=== PATIENT | female | born 1950 | race American Indian/Alaskan Native ===

== ENCOUNTER 2016-10-28 12:44 | Observation (INO) | payer BC, MEDICARE ==
[2016-10-28 12:52] VITALS: BMI 38.0
[2016-10-28] MEDS ORDERED: Labetalol 5 mg/ml Inj 20ML IV STA (12:59)
--- NOTE | 2016-10-28 13:02 | ED PDOC ---
Arrival/HPI - General Chief Complaint: Chest Pain Time Seen by Provider: 10/28/16 12:49 Historian: Patient - History of Present Illness Narrative History of Present Illness (Text): 10/28/16 12:59 66 year old female whose past medical history includes gastritis, diabetes, and hypertension presents to the emergency department with left sided chest pain for the past few days. She describes it as an achy dull sensation. Denies shortness of breath or other complaints. Time/Duration: < week Symptom Onset: Sudden Symptom Course: Unchanged Modifying Factors (Text): None Past Medical History - Provider Review Nursing Documentation Reviewed: Yes - Cardiac Hx Cardiac Disorders: Yes Hx Hypertension: Yes - Pulmonary Hx Respiratory Disorders: No - Neurological Hx Neurological Disorder: No - HEENT Hx HEENT Disorder: No - Renal Hx Renal Disorder: No - Endocrine/Metabolic Hx Endocrine Disorders: Yes Hx Diabetes Mellitus Type 2: Yes - Hematological/Oncological Hx Blood Disorders: No - Integumentary Hx Dermatological Disorder: No - Musculoskeletal/Rheumatological Hx Musculoskeletal Disorders: Yes Hx Arthritis: Yes Hx Herniated Disk: Yes - Gastrointestinal Hx Gastrointestinal Disorders: Yes Hx Gastritis: Yes - Genitourinary/Gynecological Hx Genitourinary Disorders: No - Psychiatric Hx Psychophysiologic Disorder: No Hx Substance Use: No Family/Social History - Physician Review Nursing Documentation Reviewed: Yes Family/Social History: Unknown Family HX Smoking Status: Never Smoked Hx Alcohol Use: Yes Hx Substance Use: No Allergies/Home Meds Allergies/Adverse Reactions: Allergies No Known Allergies Allergy (Verified 10/28/16 12:52) Home Medications: Home Meds Medication Instructions Recorded Confirmed Losartan/Hydrochlorothiazide 1 tab PO DAILY 10/28/16 10/28/16 [Losartan-Hctz 100-12.5 mg Tab] Simvastatin [Simvastatin] 20 mg PO DAILY 10/28/16 10/28/16 amLODIPine [Norvasc] 10 mg PO DAILY 10/28/16 10/28/16 metFORMIN [glucOPHAGE] 500 mg PO BID 10/28/16 10/28/16 Review of Systems - Physician Review All systems were reviewed & negative as marked: Yes - Review of Systems Respiratory: absent: SOB Cardiovascular: Chest Pain Physical Exam Vital Signs Reviewed: Yes Vital Signs Temp Pulse Resp BP Pulse Ox 10/28/16 18:15 98.1 F 98 H 18 150/70 98 10/28/16 17:27 61 16 142/53 L 97 06/03/17 17:00 68 18 143/68 98 10/28/16 14:58 77 16 143/78 97 10/28/16 13:52 65 16 164/63 H 99 10/28/16 13:10 70 16 194/72 H 99 10/28/16 12:49 98.0 F 80 16 208/126 H 99 Temperature: Afebrile Blood Pressure: Hypertensive Pulse: Regular Respiratory Rate: Normal Appearance: Positive for: Well-Appearing, Non-Toxic, Comfortable Pain Distress: None Mental Status: Positive for: Alert and Oriented X 3 - Systems Exam Head: Present: Atraumatic, Normocephalic Pupils: Present: PERRL Extroacular Muscles: Present: EOMI Conjunctiva: Present: Normal Mouth: Present: Moist Mucous Membranes Neck: Present: Normal Range of Motion Respiratory/Chest: Present: Clear to Auscultation, Good Air Exchange. No: Respiratory Distress, Accessory Muscle Use Cardiovascular: Present: Regular Rate and Rhythm, Normal S1, S2. No: Murmurs Abdomen: Present: Normal Bowel Sounds. No: Tenderness, Distention, Peritoneal Signs Back: Present: Normal Inspection Upper Extremity: Present: Normal Inspection. No: Cyanosis, Edema Lower Extremity: Present: Normal Inspection. No: Edema Neurological: Present: GCS=15, CN II-XII Intact, Speech Normal Skin: Present: Warm, Dry, Normal Color. No: Rashes Psychiatric: Present: Alert, Oriented x 3, Normal Insight, Normal Concentration Medical Decision Making ED Course and Treatment: Impression: 66 year old female whose past medical history includes gastritis, diabetes, and hypertension presents to the emergency department with left sided chest pain for the past few days. Differential Diagnosis included but are not limited to: Plan: -- EKG, CXR -- Aspirin, Labetolol -- Reassess and disposition Progress Notes: 10/28/16 16:56 On reevaluation, patient states pain has resolved. 10/28/16 17:02 Dr. Toribio accepts for admission - Lab Interpretations Lab Results: 10/28/16 13:09 10/28/16 13:09 Lab Results 10/28/16 13:52: Urine Color Yellow, Urine Appearance Clear, Urine pH 6.0, Ur Specific Boomer 1.010, Urine Protein Negative, Urine Glucose (UA) Negative, Urine Ketones Negative, Urine Blood Negative, Urine Nitrate Negative, Urine Bilirubin Negative, Urine Urobilinogen 0.2, Ur Leukocyte Esterase Negative 10/28/16 13:09: Sodium 137, Potassium 3.7, Chloride 101, Carbon Dioxide 28, Anion Gap 12, BUN 11, Creatinine 0.7, Est GFR ( Amer) > 60, Est GFR (Non- Af Amer) > 60, Random Glucose 141 H, Calcium 9.4, Magnesium 1.5 L, Total Bilirubin 0.7, AST 20, ALT 27, Alkaline Phosphatase 98, Lactate Dehydrogenase 409, Total Creatine Kinase 81, Troponin I < 0.01, Total Protein 7.7, Albumin 4.0 , Globulin 3.7, Albumin/Globulin Ratio 1.1 10/28/16 13:09: PT 11.6, INR 1.07, APTT 28.0 10/28/16 13:09: WBC 8.5, RBC 4.46, Hgb 13.1, Hct 37.7, MCV 84.5, MCH 29.4, MCHC 34.7, RDW 12.7, Plt Count 284, MPV 10.7, Gran % 52.0, Lymph % (Auto) 40.1 H, Gonzales % (Auto) 7.3 H, Eos % (Auto) 0.4 L, Baso % (Auto) 0.2, Gran # 4.42, Lymph # 3.4, Gonzales # 0.6, Eos # 0.0, Baso # 0.02 - RAD Interpretation Radiology Orders: 10/28/16 12:57 CHEST PORTABLE [RAD] Stat 10/28/16 13:48 ANGIOGRAPHY DISECTION PROTOCOL [CT] Stat - EKG Interpretation EKG Interpretation (Text): EKG shows NSR at [address]/t wave changes. Interpreted by me. Interpreted by ED Physician: Yes Type: 12 lead EKG - Medication Orders Current Medication Orders: Acetaminophen (Tylenol 325mg Tab) 650 mg PO Q6H PRN PRN Reason: Pain, moderate (4-7) Amlodipine Besylate (Norvasc) 10 mg PO DAILY [facility] Last Admin: 10/28/16 18:59 Dose: 10 mg Aspirin (Ecotrin) 81 mg PO DAILY [facility] Home Med (Home Med) 1 unit PO DIN [facility] Last Admin: 10/28/16 19:08 Dose: 1 unit Hydrochlorothiazide (Microzide) 12.5 mg PO DAILY JONNIE Insulin Human Regular (Humulin R Low) 0 units SC ACHS JONNIE PRN Reason: Protocol Losartan Potassium (Cozaar) 100 mg PO DAILY JONNIE Discontinued Medications Aspirin (Aspirin) 325 mg PO STAT STA Stop: 10/28/16 12:58 Last Admin: 10/28/16 13:10 Dose: 325 mg Iodixanol (Visipaque 320 Mg/Ml 100 Ml) Confirm Administered Dose 100 ml IV .STK- MED ONE Stop: 10/28/16 15:57 Labetalol HCl (Trandate) 10 mg IV STAT STA Stop: 10/28/16 13:00 Last Admin: 10/28/16 13:10 Dose: Not Given Non-Admin Reason: BP Parameters Not Met - Scribe Statement The provider has reviewed the documentation as recorded by the Alla Covarrubias Provider Scribe Attestation: All medical record entries made by the Marquisibchen were at my direction and personally dictated by me. I have reviewed the chart and agree that the record accurately reflects my personal performance of the history, physical exam, medical decision making, and the department course for this patient. I have also personally directed, reviewed, and agree with the discharge instructions and disposition. Disposition/Present on Arrival - Present on Arrival Any Indicators Present on Arrival: No History of DVT/PE: No History of Uncontrolled Diabetes: No Urinary Catheter: No History of Decub. Ulcer: No History Surgical Site Infection Following: None - Disposition Have Diagnosis and Disposition been Completed?: Yes Diagnosis: Chest pain Disposition: HOSPITALIZED Disposition Time: 20:35 Condition: STABLE
[2016-10-28 13:10] LABS: ADD MANUAL DIFF? NO
[2016-10-28 13:21] LABS: BASO # 0.02 K/mm3 (0.0-2.0); BASO % 0.2 % (0.0-3.0); EOS % 0.4 % (1.5-5.0); GRAN # 4.42 (1.4-6.5); HEMATOCRIT 37.7 % (36.0-48.0); LYMPH # 3.4 (1.2-3.4); LYMPH % 40.1 % (22.0-35.0); MEAN CELL VOLUME 84.5 fL (80.0-105.0); MEAN CORPUSCULAR HEMOGLOBIN 29.4 pg (25.0-35.0); MEAN CORPUSCULAR HGB CONC 34.7 g/dl (31.0-37.0); MEAN PLATELET VOLUME 10.7 fl (7.0-11.0); MONO # 0.6 (0.1-0.6); MONO % 7.3 % (1.0-6.0); PLATELET COUNT 284 10^3/uL (120.0-450.0); RED CELL DISTRIBUTION WIDTH 12.7 % (11.5-14.5); WHITE BLOOD COUNT 8.5 10^3/ul (4.5-11.0)
[2016-10-28 13:24] LABS: ALB/GLOB RATIO 1.1 (1.1-1.8); ALKALINE PHOSPHATASE 98 U/L (38-133); ALT/SGPT 27 U/L (7-56); AST/SGOT 20 U/L (15-39); BILIRUBIN,TOTAL 0.7 mg/dL (0.2-1.3); BLOOD UREA NITROGEN 11 mg/dL (7-21); CALCIUM 9.4 mg/dL (8.4-10.5); CARBON DIOXIDE 28 mmol/L (21-33); CHLORIDE 101 mmol/L (98-107); GFR AFRICAN-AMERICAN > 60; GLUCOSE,RANDOM 141 mg/dL (70-110); MAGNESIUM 1.5 mg/dL (1.7-2.2); POTASSIUM 3.7 mmol/L (3.6-5.0); SODIUM 137 mmol/L (132-148); TOTAL PROTEIN 7.7 g/dL (5.8-8.3)
[2016-10-28 13:26] LABS: INR 1.07 (0.93-1.08)
[2016-10-28 13:45] LABS: TROPONIN I < 0.01 ng/mL
[2016-10-28 14:00] LABS: URINE BILIRUBIN NEGATIVE (NEGATIVE); URINE BLOOD NEGATIVE (NEGATIVE); URINE GLUCOSE (UA) NEGATIVE (NEGATIVE); URINE KETONE NEGATIVE (NEGATIVE); URINE LEUKOCYTE ESTERASE NEGATIVE Leu/uL (NEGATIVE); URINE PROTEIN NEGATIVE mg/dL (<30 mg/dL); URINE UROBILINOGEN 0.2 E.U./dL (<1 E.U./dL)
[2016-10-28 14:05] LABS: URINE APPEARANCE CLEAR (CLEAR); URINE COLOR YELLOW (YELLOW)
--- NOTE | 2016-10-28 15:42 | CARD ---
APPROVED REPORT EKG Measurement Heart [id number] <Conclusion> Sinus rhythm with premature supraventricular complexes Left axis deviation Left ventricular hypertrophy with repolarization abnormality Abnormal ECG
[2016-10-28] MEDS ORDERED: Iodixanol 320 MG/ML 100 ML BOTTLE IV ONE (15:56)
--- NOTE | 2016-10-28 16:53 | CT ---
PROCEDURE: CT Angiography Chest, Abdomen and Pelvis with and without intravenous contrast HISTORY: chest pain radiating to back COMPARISON: None. TECHNIQUE: Contiguous axial images of the chest, abdomen and pelvis were obtained in the phase of aortic enhancement. A noncontrast enhanced CT of the chest was also obtained to evaluate for possible intramural thrombus. Coronal and sagittal reformats were generated. IV dose administered: 100 cc of Omnipaque 300 Radiation dose: Total exam DLP = 06/03/2005 mGy-cm. This CT exam was performed using one or more of the following dose reduction techniques: Automated exposure control, adjustment of the mA and/or kV according to patient size, and/or use of iterative reconstruction technique. FINDINGS: CT ANGIOGRAPHY OF THE CHEST WITH & WITHOUT CONTRAST: AORTA (CHEST AND ABDOMEN): The thoracic and abdominal aorta are unremarkable, without aneurysm, dissection or rupture. No intramural thrombus identified in the thoracic aorta on the non-contrast ct of the chest. Mural calcification is noted in the ascending aorta. The celiac axis, superior mesenteric artery, inferior mesenteric artery and the renal arteries are widely patent. The pelvic arteries are unremarkable. LUNGS: Clear. No nodule, mass or consolidation. MEDIASTINUM: Unremarkable. Normal caliber aorta and pulmonary arterial trunk. No aortic dissection. Normal size heart. LYMPH NODES: Unremarkable. PLEURA: Unremarkable. No pneumothorax. No pleural fluid. BONES: Unremarkable. OTHER FINDINGS: None. CT ANGIOGRAPHY OF THE ABDOMEN AND PELVIS WITH CONTRAST: LIVER: Fatty liver.. No gross lesion or ductal dilatation. GALLBLADDER AND BILE DUCTS: Unremarkable. PANCREAS: Unremarkable. No gross lesion or ductal dilatation. SPLEEN: Unremarkable. ADRENALS: Unremarkable. No mass. KIDNEYS AND URETERS: Unremarkable. No hydronephrosis. No solid mass. VASCULATURE: Unremarkable. No aortic aneurysm. STOMACH AND BOWEL: Colonic diverticulosis. No obstruction. No gross mural thickening. APPENDIX: Normal appendix. PERITONEUM: Unremarkable. No free fluid. No free air. LYMPH NODES: Unremarkable. No enlarged lymph nodes. BLADDER: Unremarkable. REPRODUCTIVE: Unremarkable. BONES: No acute fracture. OTHER FINDINGS: None. IMPRESSION:
[2016-10-28] MEDS: SIMVASTATIN 20MG PO SCH ×2 (18:42→19:08)
[2016-10-28] MEDS: Insulin Reg-LOW-Coverage SC SCH (21:28)
[2016-10-28] MEDS ORDERED: Pneumococcal 23-Valent Vaccine IM ONE (22:09)
[2016-10-28 22:28] LABS: TROPONIN I < 0.01 ng/mL
--- NOTE | 2016-10-29 04:42 | HP ---
HISTORY OF PRESENT ILLNESS: This 66-year-old female was examined at her bedside, and her case was re viewed in detail with her nurse and herself. She presented to [facility] ER complaining of left-sided chest discomfort over the past few days, described as a dull ache with a history of gas tritis, non-insulin dependent diabetes mellitus, obesity, and chronic hypertension. The patient stat ed today when she experienced the discomfort while washing dishes in her kitchen. She expressed this pain to her son, who drove her to the Emergency Room for further evaluation. The patient states she had an endoscopy approximately 6 years ago at which time they found gastritis and she does have hist ory of gastroesophageal reflux and occasional gas and belching. She states approximately 6 years ago she also had a colonoscopy for colonic polyps and is due for a repeat screening colonoscopy at [facility]. REVIEW OF SYSTEMS: HEAD: No headache or seizures. EYES: No change in visual acuity. EARS: No hearing loss. THROAT: No swallowing difficulty. NECK: No stiffness. CARDIAC: She has a history of chronic hypertension. She denies angina. She denies any knowledge of atherosclerotic heart disease, valvular heart disease, or any coronary artery surgery in her past. PULMONARY: No cough, no hemoptysis. GASTROINTESTINAL: GERD, history of gastritis, history of colonic polyps. GENITOURINARY: No dysuria. SKIN: Without rash. NEUROLOGICAL: No knowledge of stroke. MUSCULOSKELETAL: Chronic degenerative arthritis. VASCULAR: No claudication. HEMATOLOGICAL: No knowledge of anemia. ENDOCRINOLOGICAL: Type 2 diabetes mellitus for approximately 2 years, chronic hypertension for 10 ye ars, and hyperlipidemia as well. 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 FAMILY HISTORY: Her mother in childbirth in her 30s, her father in his 50s of myocardial i nfarction. SOCIAL HISTORY: She is a nondrinker, nonsmoker, non-IV drug misuser. ALLERGIES: She denies any allergy to medications. OUTPATIENT MEDICATIONS: Included losartan/hydrochlorothiazide 100/12.5 mg daily, Zocor 20 mg daily, Norvasc 10 mg daily, and Glucophage 500 mg p.o. b.i.d. PHYSICAL EXAMINATION: VITAL SIGNS: Her monitoring analyst is showing normal sinus rhythm. Temperature is 98.1, respirations 18, pulse 98, blood pressure 150/70, with a pulse ox of 98% on room air. HEENT: Normocephalic, atraumatic. Eyes show no icterus. Ears are clear. Throat is not injected. NECK: Supple. HEART: Regular S1, S2. There are no pathological rubs, murmurs, or gallops. LUNGS: Clear to auscultation. There are no rales, no wheezing, no rhonchi. ABDOMEN: Obese, nontender. There is no palpable organomegaly. There is no rebound, no guarding, no tenderness. EXTREMITIES: Show no clubbing, no cyanosis, no edema. SKIN: Has no rash. VASCULAR: Legs are warm to touch. PSYCHOLOGICAL: Alert and oriented x 3. NEUROLOGIC: Grossly intact. LABORATORY DATA: White count 8500, hemoglobin 13.1, hematocrit 37.7, platelets 284,000. PT/INR 1.07 , PTT 28.0. Sodium 137, K 3.7, chloride 101, bicarbonate 28, BUN 11, creatinine 0.7, random blood potter gar is 141. Bilirubin 0.7, AST 20, ALT 27, alkaline phosphatase 98. CPK normal at 81, troponin less than 0.01. Urinalysis: Unremarkable. EKG shows normal sinus rhythm with nonspecific ST-T wave robert nges. IMPRESSION: A 66-year-old female with chest pain, rule out unstable angina, rule out atypical chest pain with history of obesity, hypertension, type 2 diabetes mellitus, hyperlipidemia, and degenerativ e arthritis. PLAN: At present, as discussed with the patient, is to maintain cardiac monitoring. She will have c ardiac isoenzymes q. 8 x 2. I have ordered a hemoglobin A1c and a fasting lipid panel. She will con tinue on Ecotrin 81 mg p.o. daily, Cozaar 100 mg p.o. daily, hydrochlorothiazide 12.5 mg p.o. daily, simvastatin 20 mg p.o. at dinnertime, regular low-dose insulin coverage before meals and at bedtime, Pepcid 20 mg p.o. at night. She is ordered to have a heart-healthy diabetic diet. I will order a 2D echocardiogram of her heart. If her cardiac isoenzymes are stable, she will have a Persantine thall ium stress test for completeness sake, and all of the above was discussed in detail for greater than 60 minutes with the patient and her nurse, and her prognosis remains stable at present. Laly Toribio MD cc: [id number] TT: 10/29/2016 04:40:46 vn
--- NOTE | 2016-10-29 07:52 | RAD ---
HISTORY: cp COMPARISON: No prior. FINDINGS: LUNGS: No active pulmonary disease. PLEURA: No significant pleural effusion identified, no pneumothorax apparent. CARDIOVASCULAR: Normal. OSSEOUS STRUCTURES: No significant abnormalities. VISUALIZED UPPER ABDOMEN: Normal. OTHER FINDINGS: None. IMPRESSION: No active disease.
[2016-10-29] MEDS: Insulin Reg-LOW-Coverage SC SCH ×4 (08:15→22:08)
[2016-10-29 08:38] LABS: CHOLESTEROL 231 mg/dL (130-200); MAGNESIUM 1.6 mg/dL (1.7-2.2)
[2016-10-29 08:50] LABS: TROPONIN I < 0.01 ng/mL
[2016-10-29] MEDS ORDERED: Magnesium Oxide 400 mg Tab UD PO SCH (18:00)
--- NOTE | 2016-10-29 22:55 | PN ---
DATE: 10/29/2016 HISTORY OF PRESENT ILLNESS: This 66-year-old female was examined at her bedside. Her case was revie wed in detail with her herself, her son Fantasma, and her nurse Ofelia Barry RN. The patient was a dmitted with substernal chest pressure with comorbidities of obesity, chronic hypertension, type 2 di abetes mellitus, and hyperlipidemia, and concerns of unstable angina. To date, she has had no furthe r chest pain and has had troponin of less than 0.01 x 3 with 3 normal CPKs. Her 2D echocardiogram zurita s been ordered and is pending at present, as well as cardiac consultation with Dr. Bergman. Her morni ng magnesium level was slightly low, oral magnesium has been ordered as replacement, and her fasting cholesterol is elevated as well, despite being on outpatient Zocor. PHYSICAL EXAMINATION: VITAL SIGNS: Temperature is 97.1, respirations 20, pulse 68, blood pressure 152/71, with a pulse ox of 100% on room air. monitoring specialist shows normal sinus rhythm. HEAD: Normocephalic, atraumatic. EYES: No icterus. EARS: Clear. THROAT: Noninjected. NECK: Supple. HEART: Regular S1, S2. No pathological rubs, murmurs, or gallops. LUNGS: Clear. ABDOMEN: Soft, nontender, no palpable organomegaly, no rebound, no guarding, no tenderness. EXTREMITIES: Show no clubbing, no cyanosis, no edema. SKIN: Without rash. NEUROLOGIC: Intact. PSYCHOLOGICAL: Alert. VASCULAR: Legs are warm to touch. LABORATORY DATA: Show sodium 137, potassium 3.7, chloride 101, bicarb 28, BUN 11, creatinine 0.7, ra ndom blood sugar was 194, magnesium level 1.6. Total cholesterol 231, LDL 175, HDL 38, triglycerides 89. Urinalysis is unremarkable. White count 8500; hemoglobin 13.1; hematocrit 37.7; platelets 284, 000. PT/INR 1.07, PTT 28.0. Hemoglobin A1c is pending. IMPRESSION: Is a 66-year-old female admitted with chest pain in the setting of obesity, hypertension , hyperlipidemia, type 2 diabetes mellitus, with hypomagnesemia, degenerative arthritis. PLAN: At present is to continue Ecotrin 81 mg p.o. daily, Cozaar 100 mg p.o. daily, regular low-dose insulin protocol a.c. meals and at bedtime. I have increased her Lipitor to 40 mg p.o. at dinnerti me. She is receiving magnesium oxide 400 mg p.o. b.i.d. with a repeat magnesium level ordered for th e a.m. She is receiving hydrochlorothiazide 12.5 mg p.o. daily, Norvasc 10 mg p.o. daily, Pepcid 20 mg p.o. at bedtime. Her 2D echocardiogram is pending. Her heart healthy diabetic diet continues. S he will await evaluation by Dr. Fernando Bergman from cardiology, who will decide if the patient will nee d a stress test while in hospital or as outpatient. I have explained to the patient and her son all of the above in detail, answered all their questions, and greater than 50 minutes was spent in the care, coordination of care, review of care, and discuss ion of care with this patient, her son, her nurse, and staff today. Overall prognosis remains stable at present. Laly Toribio MD cc: [id number] TT: 10/29/2016 22:54:52 Confirmation # [id number] Dictation # [id number] dn
[2016-10-30] MEDS: Insulin Reg-LOW-Coverage SC SCH ×4 (08:10→22:20)
[2016-10-30] MEDS: Magnesium Oxide 400 mg Tab UD PO SCH (10:24)
--- NOTE | 2016-10-30 11:02 | CON ---
DATE: 10/30/2016 INDICATIONS: Chest pain. HISTORY OF PRESENT ILLNESS: This is a 66-year-old woman admitted 10/28 with a left-sided chest discomfort which was aching and oppressive in nature. It occurred on the day of admission and in a milder form in the days prior to admission. Since admission, she has had no evidence of myocardial infarction with several troponins that are negative. Her initial EKG did not show acute changes. She has had no further chest pain. There is dyspnea on exertion. She has chronic back pain and ambulates with a cane. There is no orthopnea, PND , syncope, presyncope, lightheadedness, dizziness, vertigo, palpitations. She does notice occasional pedal edema. There is no fever, chills, cough, sputum production, hemoptysis, abdominal pain, nausea, vomiting, diarrhea, constipation , or melena. PAST MEDICAL HISTORY: Notable for diabetes, hypertension, hyperlipidemia, obesity, gastritis, GERD, colonic polyps, chronic back pain, but no rheumatic fever, myocardial infarction, angina, congestive heart failure, arrhythmia, stroke, TIA or gout. MEDICATIONS: At the time of admission include losartan/HCTZ, simvastatin, amlodipine, metformin, Naprosyn, Tylenol with codeine. ALLERGIES: There are no known medication allergies. SOCIAL HISTORY: She lives at home. She ambulates with a cane. She does not smoke cigarettes. She does not drink alcohol. FAMILY HISTORY: Strongly positive for coronary artery disease in her father and in brothers. REVIEW OF SYSTEMS: A 10-point review of systems otherwise unremarkable except as noted above. PHYSICAL EXAMINATION: GENERAL: She is a well-developed woman in no acute distress, lying in bed on telemetry. VITAL SIGNS: Are notable for a sinus rhythm at 59-79 beats per minute. She is afebrile. Blood pressure 137/72, respirations 19-20, O2 sat 97-98% on room air. HEENT: Reveals no neck vein distention, thyromegaly, or carotid bruits. Mucous membranes are moist. Conjunctivae are pink. NECK: Supple. LUNGS: Nixon clear. HEART: Revealed normal first and second heart sounds. ABDOMEN: Soft, bowel sounds present. No mass, organomegaly, tenderness, rebound, guarding or CVA tenderness. No palpable abdominal aortic aneurysm. EXTREMITIES: Revealed no cyanosis, clubbing or edema. NEUROLOGIC: She is awake, alert and oriented. PSYCHIATRIC: Normal as to mood and affect. SKIN: Warm and dry. No rash or cellulitis. LABORATORY AND IMAGING: A chest x-ray revealed no active disease. A CT angiogram of the chest, abdomen and pelvis was apparently unremarkable. There was no evidence of aortic dissection. EKG demonstrates a regular sinus rhythm, left axis deviation, nonspecific ST-wave changes. CBC is unremarkable. PT, INR , PTT unremarkable. Electrolytes, BUN, creatinine unremarkable. Blood sugars in the 168-284 range. Magnesium 1.5, repeat 1.7. LFTs unremarkable. Several troponins are negative. Total cholesterol 231 with an LDL of 175, triglycerides 89, HDL 38. IMPRESSION: The patient is a 66-year-old woman who presents with atypical type left chest discomfort, but no evidence of myocardial infarction or active ischemia. She has multiple coronary risk factors including a strong family history of heart disease, diabetes, hypertension, hyperlipidemia, obesity and sedentary lifestyle. At this time, she is on telemetry. She has not had chest pain since admission. An echocardiogram is ordered. I will order an EKG for today. She can be out of bed. I will schedule a nuclear stress test. This can be done on an outpatient basis and she has agreed to come to our office in the next day or so to accomplish this. If she has recurring chest pain prior to discharge, she can have a nuclear stress test done as an inpatient tomorrow morning. At this time, she is on losartan, aspirin, Lipitor, magnesium replacement, hydrochlorothiazide, amlodipine, Pepcid, and Tylenol. Since her LDL is 175, I would advise switching to an alternative statin such as Lipitor 40 or 80 mg daily or Crestor at high doses in order to improve her LDL. I will follow along with you. I will make additional recommendations based on her clinical course. Fernando Bergman MD cc: [id number] TT: 10/30/2016 11:02:05 Confirmation # [id number] Dictation # [id number] jani CARRERO
--- NOTE | 2016-10-30 11:32 | PN ---
DATE: 10/30/2016 This 66-year-old female was examined at her bedside and her case was reviewed in detail with the patient and nurse Betty Fuchs. The patient is currently chest pain free. She denies any fever, cough, or shortness of breath. She is tolerating diet and medication well and ambulating with assistance. She was seen earlier by Dr. Fernando Bergman from cardiology who concurs with a 2D echocardiogram as ordered and, based on the above findings, will see if the patient can be stress tested as an outpatient. 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 HEAD: Normocephalic, atraumatic. EYES: Show no icterus. EARS: Clear. THROAT: Noninjected. NECK: Supple. HEART: Regular S1, S2. No pathological rubs, murmurs or gallops. LUNGS: Clear to auscultation. ABDOMEN: Soft, nontender. There is no palpable organomegaly, no rebound, no guarding, no tenderness. EXTREMITIES: Show no clubbing, no cyanosis, no edema. SKIN: Without rash. NEUROLOGIC: Intact. PSYCHOLOGICAL: Alert and oriented x 3. VASCULAR: Legs are warm to touch. LABORATORY DATA: White count 8500, hemoglobin 13.1, hematocrit 37.7, platelets 284,000. PT/INR 1.07, PTT 28.0. Magnesium level 1.7, normal. Cholesterol 231 , LDL 175, HDL 38 and triglycerides 89. Random blood sugar was 284. IMPRESSION: A 66-year-old female admitted with chest pain with comorbidities of obesity, hypertension, hyperlipidemia, type 2 diabetes mellitus and peptic ulcer disease with gastroesophageal reflux disease as well as degenerative arthritis. PLAN: At present is to continue heart healthy diabetic diet. She continues on Pepcid 20 mg at bedtime, Norvasc 10 mg p.o. daily, hydrochlorothiazide 12.5 mg p.o. daily, Lipitor 40 mg p.o. daily which has been adjusted from her outpatient Zocor 20 mg p.o. daily. She remains on regular low dose insulin protocol a.c. meals and at bedtime, Ecotrin 81 mg p.o. daily, Cozaar 100 mg p.o. daily, and I have ordered clonidine 0.1 mg p.o. q. 4 hours p.r.n. accelerated hypertension. Based on her echocardiogram results, patient will be ready for discharge for followup outpatient stress testing for completeness sake. The patient has been advised to take no further nonsteroidal anti- inflammatory agents which could be contributing to atypical chest pain, and her metformin will be reinstituted when patient is ready for discharge. She will be receiving insulin coverage for the time being. All of this was discussed in detail with the patient at her bedside who is aware and in agreement with the above. Greater than 50 minutes was spent in the care, coordination of care, review of care and discussion of care for this patient today with herself, consultants, nursing staff and case management. Her overall prognosis remains stable. Laly Toribio MD cc: [id number] TT: 10/30/2016 11:32:08 Confirmation # [id number] Dictation # [id number] diana MTDD
[2016-10-30 13:10] VITALS: RESP 20
[2016-10-31 05:58] VITALS: BP 155/66; PULSE 64; TEMP 98.3; O2SAT 98
--- NOTE | 2016-10-31 08:09 | CP.PCM.PN ---
Subjective - Date & Time of Evaluation Date of Evaluation: 10/31/16 Time of Evaluation: 07:00 - Subjective Subjective: Stable on 2R. No CP or SOB. + ambulation w/o sxs. V/S noted. RSR PE: Lungs: clear Cor.: S1S2 Abd.: soft Ext.: no edema Neuro.: alert I/O= 1979/3100 BS's noted 100 - 200's Objective - Vital Signs/Intake and Output Vital Signs (last 24 hours): Temp Pulse Resp BP Pulse Ox 98.3 F 64 20 155/66 H 98 10/31/16 05:58 10/31/16 05:58 10/31/16 05:58 10/31/16 05:58 10/31/16 05:58 Intake and Output: 10/31/16 10/31/16 06:59 18:59 Intake Total 1260 Output Total 2300 Balance -1040 - Medications Medications: Current Medications Acetaminophen (Tylenol 325mg Tab) 650 mg PO Q6H PRN PRN Reason: Pain, moderate (4-7) Amlodipine Besylate (Norvasc) 10 mg PO DAILY [facility] Last Admin: 10/30/16 09:10 Dose: 10 mg Aspirin (Ecotrin) 81 mg PO DAILY [facility] Last Admin: 10/30/16 09:10 Dose: 81 mg Atorvastatin Calcium (Lipitor) 40 mg PO DIN [facility] Last Admin: 10/30/16 17:00 Dose: 40 mg Clonidine HCl (Catapres) 0.1 mg PO Q4H PRN PRN Reason: hypertension Famotidine (Pepcid) 20 mg PO HS [facility] Last Admin: 10/30/16 22:21 Dose: 20 mg Hydrochlorothiazide (Microzide) 12.5 mg PO DAILY [facility] Last Admin: 10/30/16 09:11 Dose: 12.5 mg Insulin Human Regular (Humulin R Low) 0 units SC ACHS [facility] PRN Reason: Protocol Last Admin: 10/30/16 22:20 Dose: Not Given Losartan Potassium (Cozaar) 100 mg PO DAILY [facility] Last Admin: 10/30/16 09:10 Dose: 100 mg Magnesium Oxide (Mag-Ox) 400 mg PO DAILY [facility] Last Admin: 10/30/16 10:24 Dose: 400 mg - Labs Labs: PT 11.6 Seconds (9.9-11.8) 10/28/16 13:09 INR 1.07 (0.93-1.08) 10/28/16 13:09 APTT 28.0 Seconds (23.7-30.8) 10/28/16 13:09 Assessment and Plan - Assessment and Plan (Free Text) Plan: Assessment: CP Diabetes HBP HLD Obesity Gastritis GERD Colonic Polyps Chronic Back Pain/Uses Cane FH of CAD/PR Plan: Check ECG and echo. D/C home with out-pt nuclear stress test soon. Switch simva to atorvastatin 40/day Additional recs to follow stress test.
[2016-10-31] MEDS: Insulin Reg-LOW-Coverage SC SCH (08:44)
[2016-10-31] MEDS: Magnesium Oxide 400 mg Tab UD PO SCH (10:09)
--- NOTE | 2016-10-31 10:19 | CARD ---
APPROVED REPORT EKG Measurement Heart [id number] <Conclusion> Normal sinus rhythm Left axis deviation Voltage criteria for left ventricular hypertrophy No change
--- NOTE | 2016-10-31 11:13 | DS ---
FINAL DIAGNOSES: Chest pain, resolved; non-insulin dependent diabetes mellitus , chronic hypertension, obesity, hyperlipidemia, history of gastritis and gastroesophageal reflux disease, history of colonic polyps, degenerative arthritis, family history of coronary artery disease and myocardial infarction. DISPOSITION: Home. FOLLOWUP: With her PMD within 48 hours. Follow up with cardiology within the next week for outpatient nuclear stress test and also call Dr. Bergman's office in 24 hours for results of 2D echocardiogram. The patient was given his phone number, . DISCHARGE DIET: A 2 g sodium, heart healthy. DISCHARGE MEDICATIONS: Included Lipitor 40 mg p.o. at bedtime, metformin 500 mg p.o. b.i.d., Norvasc 10 mg p.o. daily, losartan/hydrochlorothiazide 100/12.5 one p.o. daily, Pepcid 20 mg p.o. at bedtime and Ecotrin 81 mg p.o. daily. SUMMARY: This 66-year-old female was admitted to the [facility] with chest pain in the setting of multiple comorbidities including obesity, non- insulin dependent diabetes mellitus, hypertension, hyperlipidemia and history of degenerative arthritis for which she was taking Naprosyn. The patient's Naprosyn was discontinued. She had serial cardiac isoenzymes which were negative for acute myocardial infarction. The patient also had a fasting cholesterol panel that was elevated with her cholesterol 231, LDL 175, HDL 38 and triglycerides 89. As a result, the patient was advised to stop Zocor and Lipitor was adjusted to 40 mg p.o. at bedtime. At the time of discharge, her 2D echocardiogram had just been completed and patient was advised to follow up with Dr. Bergman in the a.m. regarding the results of the above. He has also stated he will call the patient for scheduling of a nuclear stress test as an outpatient for completeness sake and the patient is aware that she needs to follow up with her PMD, Dr. Pieter Brantley, within the next few days as well. At the time of discharge, her vital signs were temperature 98.3, respirations 20 , pulse 98, and, blood pressure 143/63 with a pulse of 64 and a pulse ox of 98% on room air. Labs showed a magnesium level normal at 1.7, sodium 137, K 3.7, chloride 101, bicarb 28, BUN 11, creatinine 0.7 and all liver function testing was normal including bilirubin 0.7, AST 20, ALT 27, alk phos 98. White count was 8500, hemoglobin 13.1, hematocrit 37.7, platelets 284,000. PT/INR 1.07, PTT 28.0. Urinalysis unremarkable. Chest x-ray showed no active disease. EKG shows normal sinus rhythm with nonspecific ST-T wave changes. The patient is discharged to home for followup with her PMD and her overall prognosis remains stable at present. Greater than fifty minutes was spent in the care, coordination of care, review of care and discussion of the care with this patient, case management, nursing and Dr. Bergman today from cardiology. Laly Toribio MD cc: [phone] TT: 10/31/2016 11:12:55 tn MTDD
--- NOTE | 2016-11-02 09:36 | CARD ---
APPROVED REPORT EXAM: Two-dimensional and M-mode echocardiogram with Doppler and color Doppler. Other Information Quality : FairRhythm : INDICATION Chest Pain 2D DIMENSIONS IVSd1.2 (0.7-1.1cm)LVDd4.1 (3.9-5.9cm) PWd1.2 (0.7-1.1cm)LVDs2.5 (2.5-4.0cm) FS (%) 38.3 %LVEF (%)69.0 (>50%) M-Mode DIMENSIONS Left Atrium (MM)4.10 (2.5-4.0cm)Aortic Root3.10 (2.2-3.7cm) Aortic Cusp Exc.2.00 (1.5-2.0cm) Aortic Valve AoV Peak Ytqtgjlr973.0cm/sAoV VTI45.1cmAO Peak GR.16mmHg LVOT Peak Ekdrqtde469.0cm/sLVOT VTI35.50cmAO Mean GR.9mmHg Mitral Valve MV E Kvokdumg466.0cm/sMV A Geipagdu600.0cm/sE/A ratio1.0 TDI Lateral E' Peak V9.36cm/sMedial E' Peak V5.46cm/sE/Lateral E'11.2 E/Medial E'19.2 Tricuspid Valve TR Peak Vxyhdwms668kb/sRAP PEREEKZV76dpQrVR Peak Gr.8mmHg [id number] LEFT VENTRICLE The left ventricle is normal size. There is mild concentric left ventricular hypertrophy. The left ventricular function is normal. The left ventricular ejection fraction is within the normal range. There is normal LV segmental wall motion. RIGHT VENTRICLE The right ventricle is normal size. ATRIA The left atrium size is normal. The right atrium size is normal. The interatrial septum is intact with no evidence for an atrial septal defect. AORTIC VALVE The aortic valve is mildly calcified. MITRAL VALVE The mitral valve is normal in structure. Mitral annular calcification is mild to moderate. TRICUSPID VALVE The tricuspid valve is normal in structure. There is trace tricuspid regurgitation. PULMONIC VALVE The pulmonic valve is not well visualized. There is trace pulmonic valvular regurgitation. GREAT VESSELS The aortic root is normal in size. PERICARDIAL EFFUSION There is no pericardial effusion. <Conclusion> The left ventricle is normal size. There is mild concentric left ventricular hypertrophy. The left ventricular function is normal. The aortic valve is mildly calcified. Aortic sclerosis.
== END 2016-10-31 12:29 | disposition home or self-care (01) ==
LOC: ED 12:44 → ERH 17:02 → 2RNO 18:12 → INTOOBSV 21:21 → OBSVTOIN 21:21
PROVIDERS: ADMIT Internal Medicine; ATTEND Internal Medicine
DX: R07.89 Other chest pain (principal); K29.70 Gastritis, unspecified, without bleeding; I10 Essential (primary) hypertension; E66.9 Obesity, unspecified; E11.9 Type 2 diabetes mellitus without complications; M19.90 Unspecified osteoarthritis, unspecified site; E78.5 Hyperlipidemia, unspecified; E83.42 Hypomagnesemia; K21.9 Gastro-esophageal reflux disease without esophagitis; G89.29 Other chronic pain; M54.9 Dorsalgia, unspecified; Z86.010 Personal history of colon polyps; Z79.84 Long term (current) use of oral hypoglycemic drugs; Z82.49 Family history of ischemic heart disease and other diseases of the circulatory system
CPT/HCPCS: 36415; 71010; 71275; 74175; 80053; 80061; 81003; 82550; 82948; 83036; 83615; 83735; 84484; 85025; 85610; 85730; 93005; 93306; 99285; G0378; Q9967